=== PATIENT | male | born 1975 | race Caucasian/White ===

== ENCOUNTER 2021-09-05 15:12 | Outpatient (CLI) | payer BC | END 2021-09-05 15:13 | disposition home or self-care (01) | LOC: LABBT 15:12 | PROVIDERS: ATTEND Surgery | DX: K80.20 Calculus of gallbladder without cholecystitis without obstruction (principal); Z20.822 Contact with and (suspected) exposure to COVID-19 | CPT/HCPCS: 87811 ==

== ENCOUNTER 2021-09-09 07:04 | Day surgery (SDC) | payer BC ==
[2021-09-09] MEDS ORDERED: Bupivacaine PF 0.5% 30 ML VIAL ONE (14:13)
[2021-09-09] MEDS ORDERED: Lidocaine 1% w/Epinephrine 1:100K 20 ML VIAL ONE (14:13)
[2021-09-09] MEDS ORDERED: Sodium Chloride 0.9% 100 ML ONE (14:19)
[2021-09-09] MEDS ORDERED: CEFAZOLIN 2 GM VIAL ONE (14:19)
[2021-09-09] MEDS ORDERED: SUGAMMADEX SODIUM 200 MG/2 ML VIAL ONE (14:24)
[2021-09-09] MEDS ORDERED: fentaNYL Citrate/PF 100 MCG/2 ML SYRINGE ONE (14:24)
[2021-09-09] MEDS ORDERED: Famotidine/PF 20 mg/2ml Vial ONE (14:24)
[2021-09-09] MEDS ORDERED: PROPOFOL 200 MG/20 ML VIAL ONE (14:28)
[2021-09-09] MEDS ORDERED: Dexamethasone 20 MG/5 ML VIAL ONE (14:28)
[2021-09-09] MEDS ORDERED: Lidocaine 1% PF 5 ML VIAL ONE (14:28)
[2021-09-09] MEDS ORDERED: Metoclopramide HCl 10 MG/2 ML VIAL ONE (14:28)
[2021-09-09] MEDS ORDERED: Ketorolac Tromethamine 30 MG/ML VIAL ONE (14:28)
[2021-09-09] MEDS ORDERED: Glycopyrrolate 0.2 MG/ML 5 ML SYRINGE ONE (14:28)
[2021-09-09] MEDS ORDERED: Ondansetron PF 4 MG/2 ML Vial ONE (14:28)
[2021-09-09] MEDS ORDERED: Rocuronium Bromide 10 MG/ML (10ML VIAL) ONE (14:28)
[2021-09-09] MEDS ORDERED: Fentanyl 100 MCG/2 ML VIAL ONE (16:15)
== END 2021-09-09 18:20 | disposition home or self-care (01) ==
LOC: SDC 07:04
PROVIDERS: ATTEND Surgery
PROC: 8E0W4CZ Robotic Assisted Procedure of Trunk Region, Percutaneous Endoscopic Approach (ICD-10-PCS; principal; 2021-09-09)
PROC: 0YUA4JZ Supplement Bilateral Inguinal Region with Synthetic Substitute, Percutaneous Endoscopic Approach (ICD-10-PCS; principal; 2021-09-09)
DX: K40.20 Bilateral inguinal hernia, without obstruction or gangrene, not specified as recurrent (principal); J30.2 Other seasonal allergic rhinitis; Z79.899 Other long term (current) drug therapy; Z88.2 Allergy status to sulfonamides
CPT/HCPCS: C1713; J0690; J1100; J1885; J2405; J2704; J2710; J2765; J3010; J3490; S0020; S0028

== ENCOUNTER 2022-12-18 13:34 | Outpatient (CLI) | payer BC | END 2022-12-18 13:35 | disposition home or self-care (01) | LOC: SCSMRI 13:34 | PROVIDERS: ATTEND Family Medicine | DX: R51.9 Headache, unspecified (principal); H74.91 Unspecified disorder of right middle ear and mastoid | CPT/HCPCS: 70551 ==

== ENCOUNTER 2023-04-09 08:36 | Outpatient (CLI) | payer BC | END 2023-04-09 08:37 | disposition home or self-care (01) | LOC: MRI 08:36 | PROVIDERS: ATTEND Psychiatry & Neurology Neurology | DX: G43.019 Migraine without aura, intractable, without status migrainosus (principal) | CPT/HCPCS: 70544 ==

== ENCOUNTER 2024-03-31 07:31 | Outpatient (CLI) | payer BC ==
[2024-03-31] MEDS ORDERED: Magnevist 469MG/ML 20 ML VIAL ONE (14:03)
== END 2024-03-31 07:32 | disposition home or self-care (01) ==
LOC: BICMRI 07:31
PROVIDERS: ATTEND Psychiatry & Neurology Neurology
DX: R93.89 Abnormal findings on diagnostic imaging of other specified body structures (principal); M48.02 Spinal stenosis, cervical region; M48.03 Spinal stenosis, cervicothoracic region; M25.78 Osteophyte, vertebrae
CPT/HCPCS: 72156

== ENCOUNTER 2024-09-28 15:55 | Outpatient (CLI) | payer BC ==
[2024-09-28 16:49] LABS: #Basophils 0.03 10x3/uL (0.0-0.2); #Eosinophils 0.10 10x3/uL (0.0-0.7); #Monocytes 0.50 10x3/uL (0.11-0.59); #Neutrophils 3.96 10x3/uL (1.40-6.50); %Basophils 0.4 % (0.0-1.0); %Eosinophils 1.5 % (0.0-10.0); %Lymphocytes 31.3 % (21.0-51.0); %Monocytes 7.3 % (0.0-10.0); %Neutrophils 58.2 % (42.0-75.0); Hematocrit 41.4 % (42.0-52.0); Hemoglobin 14.1 g/dL (14.0-18.0); Mean Corpuscular Hemoglobin 29.7 pg (27.0-31.0); Mean Corpuscular Volume 87.3 fL (78.0-98.0); Platelet Count 213 10x3/uL (130-400); Red Blood Cell (RBC) Count 4.74 mill/uL (4.70-6.10); White Blood Cell (WBC) Count 6.81 10x3/uL (4.8-10.8)
[2024-09-28 17:17] LABS: Anion Gap 14 mmol/L (10-20); BUN (Urea Nitrogen) 18 mg/dL (8.9-20.6); Calc. Creatinine Clearance 0 mL/min (70-130); Calcium 9.0 mg/dL (7.8-10.44); Carbon Dioxide 27 mmol/L (22-29); Chloride 103 mmol/L (98-107); Glucose 93 mg/dL (70-105); Potassium 4.0 mmol/L (3.5-5.1); Sodium 140 mmol/L (136-145)
== END 2024-09-28 15:56 | disposition home or self-care (01) ==
LOC: LABBT 15:55
PROVIDERS: ATTEND Neurological Surgery
DX: Z01.818 Encounter for other preprocedural examination (principal); M54.12 Radiculopathy, cervical region
CPT/HCPCS: 80048; 85025

== ENCOUNTER 2024-10-03 06:34 | Observation (INO) | payer BC ==
[2024-09-28 16:08] VITALS: BMI 22.9
[2024-10-03] MEDS ORDERED: fentaNYL PF 100 MCG/2 ML SYRINGE ONE ×2 (07:20→09:56)
[2024-10-03] MEDS ORDERED: SUGAMMADEX SODIUM 200 MG/2 ML VIAL ONE (07:20)
[2024-10-03] MEDS ORDERED: PROPOFOL 20 ML ONE (07:20)
[2024-10-03] MEDS ORDERED: Lidocaine 1% PF 5 ML VIAL ONE (07:22)
[2024-10-03] MEDS ORDERED: Ondansetron PF 4 MG/2 ML Vial ONE (07:22)
[2024-10-03] MEDS ORDERED: HYDROmorphone 0.5 MG/0.5 ML SYRINGE ONE ×3 (07:29→10:17)
[2024-10-03] MEDS ORDERED: Rocuronium Bromide 10 MG/ML (10ML VIAL) ONE (07:30)
[2024-10-03] MEDS ORDERED: CEFAZOLIN 2 GM VIAL ONE (07:46)
[2024-10-03] MEDS ORDERED: PHENYLEPHRINE-NS 100 MCG/ML 10 ML SYRINGE ONE (08:36)
[2024-10-03] MEDS ORDERED: Acetaminophen 325 MG TAB PO PRN (09:26)
[2024-10-03] MEDS ORDERED: Mag-Al 1200 mg/1200 mg/30 ML UDCUP PO PRN (09:26)
[2024-10-03] MEDS ORDERED: Acetaminophen/Codeine 30-300mg Tablet PO PRN (09:26)
[2024-10-03] MEDS ORDERED: Ondansetron PF 4 MG/2 ML Vial IVP PRN (09:26)
[2024-10-03] MEDS ORDERED: diphenhydrAMINE 50 MG/ML VIAL IVP PRN (09:26)
[2024-10-03] MEDS ORDERED: Milk Of Magnesia 30 ML UDCUP PO PRN (09:26)
[2024-10-03] MEDS ORDERED: Loratadine 10 MG/10 ML UDCUP PO PRN (09:28)
[2024-10-03] MEDS: Acetaminophen/Codeine 30-300mg Tablet PO PRN (13:39)
[2024-10-03] MEDS: Cyclobenzaprine 10 MG TAB PO PRN (16:23)
[2024-10-03] MEDS: Divalproex Sodium DR 500 MG TAB PO SCH (20:14)
[2024-10-04 08:04] VITALS: BP 101/66; TEMP 97.7
== END 2024-10-04 10:45 | disposition home or self-care (01) ==
LOC: SDC 06:34 → SURG A 09:30
PROVIDERS: ADMIT Neurological Surgery; ATTEND Neurological Surgery
PROC: 0RG10A0 Fusion of Cervical Vertebral Joint with Interbody Fusion Device, Anterior Approach, Anterior Column, Open Approach (ICD-10-PCS; principal; 2024-10-04)
PROC: 0RB30ZZ Excision of Cervical Vertebral Disc, Open Approach (ICD-10-PCS; 2024-10-04)
DX: M54.12 Radiculopathy, cervical region (principal); Z88.2 Allergy status to sulfonamides; Z88.8 Allergy status to other drugs, medicaments and biological substances
CPT/HCPCS: C1713; J1100; J1171; J2250; J2405; J2704